=== PATIENT | female | born 1995 | race American Indian/Alaskan Native ===

== ENCOUNTER 2018-04-23 21:02 | Emergency (ER) | payer SELFPAY ==
[2018-04-23] MEDS ORDERED: ASPIRIN PO ONE (21:30)
[2018-04-23 21:49] LABS: Basophils % (Auto) 0.4 % (0.0-1.8); Eosinophils # (Auto) 0.8 K/mm3 (0.0-0.4); Eosinophils % (Auto) 8.8 % (0.0-4.3); Hematocrit 38.3 % (30.3-42.9); Hemoglobin 12.9 gm/dl (10.1-14.3); Lymphocytes # (Auto) 2.9 K/mm3 (1.2-5.4); Lymphocytes % (Auto) 33.7 % (13.4-35.0); Mean Corpuscular HGB Conc 34 % (30-34); Mean Corpuscular Hemoglobin 32 pg (28-32); Mean Corpuscular Volume 95 fl (79-97); Monocytes # (Auto) 0.6 K/mm3 (0.0-0.8); Monocytes % (Auto) 7.3 % (0.0-7.3); Platelet Count 225 K/mm3 (140-440); Red Blood Count 4.02 M/mm3 (3.65-5.03); Red Cell Distribution Width 13.7 % (13.2-15.2)
[2018-04-23 22:04] LABS: BUN/Creatinine Ratio 16; Blood Urea Nitrogen 11 mg/dL (7-17); Calcium 9.2 mg/dL (8.4-10.2); Hemolysis Index 9
--- NOTE | 2018-04-23 23:13 | XRay Report ---
FINAL REPORT PROCEDURE: XR CHEST ROUTINE 2V TECHNIQUE: PA and lateral chest radiographs were obtained. CPT 29046 HISTORY: chestpain COMPARISON: No prior studies are available for comparison. FINDINGS: Heart: Normal. Mediastinum/Vessels: Normal. Lungs/Pleural space: Normal. Bony thorax: No acute osseous abnormality. Other: IMPRESSION: Normal examination.
--- NOTE | 2018-04-24 02:05 | Emergency Department Report ---
ED Chest Pain HPI - General Chief Complaint: Chest Pain Stated Complaint: CHEST PAIN Time Seen by Provider: 04/24/18 02:03 Source: patient Mode of arrival: Ambulatory Limitations: No Limitations - History of Present Illness Initial Comments: Patient presents with chief complaint of chest pain. Patient is previously healthy 22-year-old woman,, no pre-existing health issues , reports that she noticed discomfort in her central chest, worse with deep inspiration or some movements this morning, soon after waking, which has persisted through the day, and has progressed through the day. At around 4:30, approximately 3 hours prior to arrival it became severe enough, that she felt that she needed to be seen, and she comes to the emergency department for care. She was in significant discomfort at time of arrival, but by time of evaluation by myself, pain has subsided, she is resting much more comfortably. Pain is described as a central ache and tightness in her anterior chest, worse with movement or deep breathing, not associated with cough or congestion, and no shortness of breath. She has not had any fever or chills or diaphoresis. She works at a [employer], performs repetitive activity, but not significantly strenuous. She reports some stress related situations, but not major. She's had no prior episodes such as today. - Related Data Previous Rx's Medication Instructions Recorded Last Taken Type Meloxicam 7.5 mg PO DAILY #15 tablet 04/24/18 Unknown Rx traMADol [Ultram 50 MG tab] 50 mg PO Q6HR PRN #20 tablet 04/24/18 Unknown Rx Allergies Allergy/AdvReac Type Severity Reaction Status Date / Time No Known Allergies Allergy Verified 04/24/18 02:04 ED Review of Systems ROS: Stated complaint: CHEST PAIN Other details as noted in HPI ED Past Medical Hx - Past Medical History Previous Medical History?: No - Surgical History Past Surgical History?: No - Social History Smoking Status: Never Smoker Substance Use Type: None - Medications Home Medications: Home Medications Medication Instructions Recorded Confirmed Last Taken Type Meloxicam 7.5 mg PO DAILY #15 tablet 04/24/18 Unknown Rx traMADol [Ultram 50 MG tab] 50 mg PO Q6HR PRN #20 tablet 04/24/18 Unknown Rx ED Physical Exam - General Limitations: No Limitations ED Course Vital Signs 04/23/18 04/24/18 21:22 01:00 Temperature 37.1 C Pulse Rate 67 Respiratory 18 18 Rate Blood Pressure 121/61 O2 Sat by Pulse 100 100 Oximetry RENEA score - Renea Score Age > 65: (0) No Aspirin use within the Past 7 Days: (0) No 3 or more CAD Risk Factors: (0) No 2 or more Angina events in past 24 hrs: (0) No Known CAD with more than 50% Stenosis: (0) No Elevated Cardiac Markers: (0) No ST Deviation Greater than 0.5mm: (0) No RENEA Score: 0 ED Medical Decision Making - Lab Data Result diagrams: 04/23/18 21:35 04/23/18 21:35 - EKG Data -: EKG Interpreted by Me (normal EKG, with P wave evidence of mild left atrial enlargement and limb l) EKG shows normal: sinus rhythm (by 1 bpm), axis, intervals (QT interval normal at 430 ms corrected), QRS complexes (normal QRS axis 30), ST-T waves Rate: normal - EKG Data When compared to previous EKG there are: previous EKG unavailable - Radiology Data Radiology results: report reviewed Normal chest x-ray - Medical Decision Making Patient has clear-cut bilateral costochondritis, with tenderness in the costochondral areas which reproduces her discomfort. She has much less tenderness in the anterior chest on either side in the pectoralis muscles. Lungs are clear to auscultation, EKG is normal, laboratory evaluation is normal as well. She is stable for discharge home, was reassured that there was only musculoskeletal tenderness, no signs of any cardiopulmonary abnormalities. She' ll be given time off for the next day or 2 to rest, have an analgesics, and arm pharmacologic measures such as local warm compresses - Differential Diagnosis costochondritis, acute Roane syndrome, pneumonia Critical Care Time: No Critical care attestation.: If time is entered above; I have spent that time in minutes in the direct care of this critically ill patient, excluding procedure time. ED Disposition Clinical Impression: Costochondritis, acute Disposition: DC-01 TO HOME OR SELFCARE Is pt being admited?: No Does the pt Need Aspirin: No Condition: Stable Instructions: Costochondritis (ED) Additional Instructions: Warm compresses will help soothe the muscles, and helped him to relax. You can apply moderate heat, 3-4 times per day, 15-30 minutes at a time. Gentle stretching exercises several times per day will also help relax muscles, but avoid bouncing, as this can increase sudden strains. We are prescribing meloxicam, which can be taken for anti-inflammatories, and tramadol and be taken for more pain, up to 4 times per day. Rest for the next couple of days, we have provided a work excuse. Follow with her primary care doctor if symptoms continue for a prolonged period of time, but symptoms may be fairly slow to resolve, as it takes some time to develop, may experience continued discomfort over the next week or so, but symptoms should be steadily improving by that time.. Prescriptions: Meloxicam 7.5 mg PO DAILY #15 tablet traMADol [Ultram 50 MG tab] 50 mg PO Q6HR PRN #20 tablet PRN Reason: Pain Referrals: PRIMARY CARE, [Primary Care Provider] - 3-5 Days Forms: Work/School Release Form(ED) Time of Disposition: 03:46
[2018-04-24 04:03] VITALS: BP 95/62
== END 2018-04-24 04:03 | disposition home or self-care (01) ==
LOC: ED 21:02
DX: M94.0 Chondrocostal junction syndrome [Tietze] (principal)
CPT/HCPCS: 36415; 71046; 80048; 84484; 84703; 85025; 85379; 93005; 93010; 99284